=== PATIENT | male | born 1980 | race Hispanic/Latino ===

== ENCOUNTER 2016-10-06 18:54 | Emergency (ER) | payer BC, OTHER ==
[2016-10-06 19:08] VITALS: RESP 18; TEMP 98.3
[2016-10-06] MEDS ORDERED: Lidocaine 1% Inj (20ml) ONE (19:29)
[2016-10-06] MEDS ORDERED: Bacitracin 500 Units/gm Oint Foilpak UD ONE (19:29)
--- NOTE | 2016-10-06 19:42 | C.PDOC ---
History Of Present Illness 36 y/o male presents with lac to tip of left index finger from ex-acto knife, done just prior to arrival. pt washed finger with soap and water., no numbness or tingling. last tdap approx 5 yrs ago Time Seen by Provider: 10/06/16 19:19 Chief Complaint (Nursing): Abnormal Skin Integrity History Per: Patient History/Exam Limitations: no limitations Onset/Duration Of Symptoms: Mins (30) Current Symptoms Are (Timing): Still Present Location Of Injury: Left: Hand (index finger) Quality Of Symptoms: Painful Pain Scale Rating Of: 4 Recent travel outside of the [place]: No Past Medical History Reviewed: Historical Data, Nursing Documentation, Vital Signs Vital Signs: Last Vital Signs Temp 98.3 F 10/06/16 19:05 Pulse 71 10/06/16 20:05 Resp 18 10/06/16 20:05 BP 119/69 10/06/16 20:05 Pulse Ox 97 10/06/16 20:16 - Medical History PMH: No Chronic Diseases Surgical History: No Surg Hx Family History: States: Unknown Family Hx - Social History Hx Tobacco Use: No Hx Alcohol Use: No Hx Substance Use: No Review Of Systems Skin: Positive for: Other (laceration tip left index finger) Neurological: Negative for: Weakness, Numbness Physical Exam - Physical Exam Appears: Non-toxic, No Acute Distress Skin: Normal Color, Warm, Dry, Other (1 cm laceratin to tip left index finger, sensation intact, from, no active bleeding. normal cap refill. ) ED Course And Treatment O2 Sat by Pulse Oximetry: 97 Laceration - Laceration Repair left index finger Wound Length (In cm): 1 Description Of Wound: Linear, Clean Wound Cleansed With: Betadine Anesthesia: Lidocaine 1% Wound Examination: Irrigated With Saline, No FB With Wound Exploration, No Tendon Injury With Wound Exploration Wound Closure: Suture Suture Technique And Material Used: Running, Interrupted Wound Complexity: Simple (3 sutures of 5-0 nylon) Medical Decision Making Medical Decision Making: wound care, discharge Disposition Counseled Patient/Family Regarding: Diagnosis, Need For Followup - Disposition Disposition: HOME/ ROUTINE Disposition Time: 19:59 Condition: GOOD Additional Instructions: Keep clean and dry; wash daily with soap and water, then re-apply antibiotic ointment., watch for any sign of infection such as redness, swelling, pus, Tylenol or Motrin for pain if needed. Suture removal in 7 days at your primary care doctor. Instructions: Care For Your Stitches (ED), Laceration (ED) Forms: General Discharge Instructions - Clinical Impression Clinical Impression: Laceration of left index finger
[2016-10-06 20:05] VITALS: BP 119/69; PULSE 71
[2016-10-06 20:16] VITALS: O2SAT 97
== END 2016-10-06 20:06 | disposition home or self-care (01) ==
LOC: C.ER 18:54
DX: S61.211A Laceration without foreign body of left index finger without damage to nail, initial encounter (principal); W26.0XXA Contact with knife, initial encounter; Y93.89 Activity, other specified; Y92.008 Other place in unspecified non-institutional (private) residence as the place of occurrence of the external cause